=== PATIENT | female | born 1965 | race Caucasian/White ===

== ENCOUNTER 2017-01-01 13:29 | Emergency (ER) | payer OTHER ==
--- NOTE | 2017-01-01 14:12 | DIAGNOSTIC IMAGING REPORT ---
PROCEDURE: XR CHEST 1 VIEW INDICATION: CHEST PAIN TECHNIQUE: Portable AP view 01:51 p.m. COMPARISON: None. FINDINGS: Lungs are clear. Heart and mediastinum are normal. Thorax is normal. IMPRESSION: 1. Negative chest.
--- NOTE | 2017-01-01 17:13 | ED NURSING NOTES ---
Clinical Report - Nurses [facility] [address] [place] [address] 01/01/2017 13:30 Patient: MIMI GURROLA TRIAGE Triage time 13:Jan 01 2017. Acuity: LEVEL 2. Chief Complaint: CHEST PAIN. NGOC COMA SCORE: Ngoc Coma Scale: 15- eyes open spontaneously (4); best verbal response- oriented x 4 (5); best motor response- obeys commands (6). --13:38 Guilherme Hawkins R.N. 13:33 01/01/17. BP: 140/97. HR: 70. RR: 18. O2 saturation: 100%. Temp: 97.8 F. Pain level now 7/10. --13:38 Guilherme Hawkins R.N. Weight: 58 kg stated. Height/Length: 65 inches Per Patient. BMI: 21.3. --13:34 Guilherme Hawkins R.N. Medications Hormone replacement. --13:34 Guilherme Hawkins R.N. Allergies Opiates. --13:34 Guilherme Hawkins R.N. History Arrived by private vehicle. Historian: patient. Primary physician (). This started yesterday. ( States has gained 12 lbs in one week and pt states hasn't been eating then got this pain and chest tightness last night.). She has had difficulty breathing and nausea. No sweating episodes, vomiting, fever or cough. 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 PAST MEDICAL HX: Immunizations: up-to-date. The patient has had a hysterectomy. SOCIAL HX: Never smoker. No alcohol use or drug use. SELF HARM ASSESSMENT: A self harm assessment was performed. The patient answered "no" to the question "Have you recently felt down, depressed, or hopeless?" and "Do you have thoughts of harming or killing yourself?". FALL RISK ASSESSMENT: Fall risk assessment completed. No fall risk identified. NUTRITIONAL RISK ASSESSMENT: The nutritional risk assessment revealed no deficiencies. FUNCTIONAL ASSESSMENT: Functional assessment: no impairments noted. LEARNING NEEDS ASSESSMENT: The learning needs assessment revealed no barriers. ABUSE ASSESSMENT: Abuse assessment: (yes) The patient was asked "Do you feel safe in your home?". SKIN INTEGRITY ASSESSMENT: Skin integrity risk assessment completed. No skin integrity risk identified. --13:38 Guilherme Hawkins R.N. PROBLEMS: Cancer. Contusion. Menopausal syndrome. Hypothyroidism. --13:34 Guilherme Hawkins R.N. ADDITIONAL SURGERIES: Arm surgery . Hysterectomy. --13:34 Guilherme Hawkins R.N. Interventions ID band on patient. --13:38 Guilherme Hawkins R.N. PHYSICAL ASSESSMENT Ambulatory to room. GENERAL / NEURO / PSYCH: Alert. Oriented X 4. Appears anxious. HEENT: Mucous membranes are pink. RESPIRATORY: Respirations not labored. Chest nontender. Breath sounds within normal limits. CVS: Normal sinus rhythm noted. Heart sounds within normal limits. Pulses within normal limits. Capillary refill less than 2 seconds. GI / : Abdomen soft and nontender. ( Last BM today and normal). EXTREMITIES: ( Right leg swelling a couple days ago). SKIN: Skin is warm and dry. Normal skin turgor. Skin is non-tender. --13:39 Guilherme Hawkins R.N. NURSING PROGRESS NOTES The initial plan of care for this patient includes an assessment with efforts to address patient positioning, appropriate ambient lighting and comfortable environmental temperature; impairment of the cardiovascular system. safety administrator, pulse oximeter and NIBP monitor placed on patient. Patient gowned. Reassurance given. Call light placed in reach. Side rails up x 1. Bed placed in lowest position. Brakes of bed on. --13:39 Guilherme Hawkins R.N. 13:40 01/01/17. BP: 148/86. HR: 72. RR: 16. O2 saturation: 100%. --13:41 Guilherme Hawkins R.N. EKG time: (1340). EKG was ordered, performed by a tech and shown to the ED physician. --13:42 Shantelle Ray ER Tech1 13:45 01/01/2017 Site #1 started via IV in the right hand with an 20g angiocath, with aseptic technique and good blood return; one attempt. Saline lock flushed with 10 mL saline. --14:00 Lindsey Serrano R.N. 14:02 01/01/2017 Aspirin PO Tablets 325 mg given. Allergies verified and confirmed 5 rights. --14:02 Guilherme Hawkins R.N. 15:15 01/01/17. BP: 130/87. HR: 68. RR: 16. O2 saturation: 99%. 14:45 01/01/17. BP: 145/88. HR: 69. RR: 18. O2 saturation: 99%. 14:15 01/01/17. BP: 131/91. HR: 70. RR: 16. O2 saturation: 100%. 13:50 01/01/17. BP: 128/85. HR: 69. RR: 18. O2 saturation: 99%. 13:40 01/01/17. BP: 148/86. HR: 72. RR: 16. O2 saturation: 100%. --17:56 Guilherme Hawkins R.N. DISPOSITION / DISCHARGE Departure time: 1729Jan 01 2017. Condition at departure: improved. No learning barriers present. Discharge instructions provided and reviewed with the patient. Reviewed warnings. Reviewed medication(s). Treatments reviewed. Reviewed referrals. Patient verbalized understanding. Written instructions provided in Uzbek. The patient was discharged home. She left the Emergency Department ambulatory and via private vehicle. Patient driving. --19:28 Guilherme Hawkins R.N. 17:30 01/01/17. BP: 126/89. HR: 71. RR: 14. O2 saturation: 98%. Pain level now: 09/28. --19:28 Guilherme Hawkins R.N. 17:11 01/01/2017 Site #1 removed upon discharge. Catheter intact. Pressure dressing applied. --19:29 Guilherme Hawkins R.N. Locked/Released at 01/01/2017 19:29 by Guilherme Hawkins R.N.
--- NOTE | 2017-01-01 17:13 | ED NURSING NOTES ---
Clinical Report - Nurses [facility] [address] [place] [address] 01/01/2017 13:30 Patient: MIMI GURROLA TRIAGE Triage time 13:Jan 01 2017. Acuity: LEVEL 2. Chief Complaint: CHEST PAIN. NGOC COMA SCORE: Ngoc Coma Scale: 15- eyes open spontaneously (4); best verbal response- oriented x 4 (5); best motor response- obeys commands (6). --13:38 Guilherme Hawkins R.N. 13:33 01/01/17. BP: 140/97. HR: 70. RR: 18. O2 saturation: 100%. Temp: 97.8 F. Pain level now 7/10. --13:38 Guilherme Hawkins R.N. Weight: 58 kg stated. Height/Length: 65 inches Per Patient. BMI: 21.3. --13:34 Guilherme Hawkins R.N. Medications Hormone replacement. --13:34 Guilherme Hawkins R.N. Allergies Opiates. --13:34 Guilherme Hawkins R.N. History Arrived by private vehicle. Historian: patient. Primary physician (). This started yesterday. ( States has gained 12 lbs in one week and pt states hasn't been eating then got this pain and chest tightness last night.). She has had difficulty breathing and nausea. No sweating episodes, vomiting, fever or cough. 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 PAST MEDICAL HX: Immunizations: up-to-date. The patient has had a hysterectomy. SOCIAL HX: Never smoker. No alcohol use or drug use. SELF HARM ASSESSMENT: A self harm assessment was performed. The patient answered "no" to the question "Have you recently felt down, depressed, or hopeless?" and "Do you have thoughts of harming or killing yourself?". FALL RISK ASSESSMENT: Fall risk assessment completed. No fall risk identified. NUTRITIONAL RISK ASSESSMENT: The nutritional risk assessment revealed no deficiencies. FUNCTIONAL ASSESSMENT: Functional assessment: no impairments noted. LEARNING NEEDS ASSESSMENT: The learning needs assessment revealed no barriers. ABUSE ASSESSMENT: Abuse assessment: (yes) The patient was asked "Do you feel safe in your home?". SKIN INTEGRITY ASSESSMENT: Skin integrity risk assessment completed. No skin integrity risk identified. --13:38 Guilherme Hawkins R.N. PROBLEMS: Cancer. Contusion. Menopausal syndrome. Hypothyroidism. --13:34 Guilherme Hawkins R.N. ADDITIONAL SURGERIES: Arm surgery . Hysterectomy. --13:34 Guilherme Hawkins R.N. Interventions ID band on patient. --13:38 Guilherme Hawkins R.N. PHYSICAL ASSESSMENT Ambulatory to room. GENERAL / NEURO / PSYCH: Alert. Oriented X 4. Appears anxious. HEENT: Mucous membranes are pink. RESPIRATORY: Respirations not labored. Chest nontender. Breath sounds within normal limits. CVS: Normal sinus rhythm noted. Heart sounds within normal limits. Pulses within normal limits. Capillary refill less than 2 seconds. GI / : Abdomen soft and nontender. ( Last BM today and normal). EXTREMITIES: ( Right leg swelling a couple days ago). SKIN: Skin is warm and dry. Normal skin turgor. Skin is non-tender. --13:39 Guilherme Hawkins R.N. NURSING PROGRESS NOTES The initial plan of care for this patient includes an assessment with efforts to address patient positioning, appropriate ambient lighting and comfortable environmental temperature; impairment of the cardiovascular system. rn first assistant, pulse oximeter and NIBP monitor placed on patient. Patient gowned. Reassurance given. Call light placed in reach. Side rails up x 1. Bed placed in lowest position. Brakes of bed on. --13:39 Guilherme Hawkins R.N. 13:40 01/01/17. BP: 148/86. HR: 72. RR: 16. O2 saturation: 100%. --13:41 Guilherme Hawkins R.N. EKG time: (1340). EKG was ordered, performed by a tech and shown to the ED physician. --13:42 Shantelle Ray ER Tech1 13:45 01/01/2017 Site #1 started via IV in the right hand with an 20g angiocath, with aseptic technique and good blood return; one attempt. Saline lock flushed with 10 mL saline. --14:00 Lindsey Serrano R.N. 14:02 01/01/2017 Aspirin PO Tablets 325 mg given. Allergies verified and confirmed 5 rights. --14:02 Guilherme Hawkins R.N. 15:15 01/01/17. BP: 130/87. HR: 68. RR: 16. O2 saturation: 99%. 14:45 01/01/17. BP: 145/88. HR: 69. RR: 18. O2 saturation: 99%. 14:15 01/01/17. BP: 131/91. HR: 70. RR: 16. O2 saturation: 100%. 13:50 01/01/17. BP: 128/85. HR: 69. RR: 18. O2 saturation: 99%. 13:40 01/01/17. BP: 148/86. HR: 72. RR: 16. O2 saturation: 100%. --17:56 Guilherme Hawkins R.N. DISPOSITION / DISCHARGE Departure time: 1729Jan 01 2017. Condition at departure: improved. No learning barriers present. Discharge instructions provided and reviewed with the patient. Reviewed warnings. Reviewed medication(s). Treatments reviewed. Reviewed referrals. Patient verbalized understanding. Written instructions provided in Yoruba. The patient was discharged home. She left the Emergency Department ambulatory and via private vehicle. Patient driving. --19:28 Guilherme Hawkins R.N. 17:30 01/01/17. BP: 126/89. HR: 71. RR: 14. O2 saturation: 98%. Pain level now: 09/28. --19:28 Guilherme Hawkins R.N. 17:11 01/01/2017 Site #1 removed upon discharge. Catheter intact. Pressure dressing applied. --19:29 Guilherme Hawkins R.N. Locked/Released at 01/01/2017 19:29 by Guilherme Hawkins R.N.
--- NOTE | 2017-01-01 17:13 | ED ORDER SUMMARY ---
..... Patient: MIMI GURROLA OrderSheet VisitID: [id number] [address] [place] [address] 51y, F Registration Date/Time: 01/01/2017 ORDER SHEET Weight: 58.0 kg (stated) Allergies: Opiates GENERAL ORDERS: Electronic Scale Assembler And Tester (Continuous) (13:55 01/01/2017 HBivens A.R.N.P.) (13:59 LWhalen R.N.) Chest 1V Urgent (13:55 01/01/2017 HBivens A.R.N.P.) (Ack 13:57 KHoerner) (14:07 KHoerner) CBC w Diff Urgent (13:55 01/01/2017 HBivens A.R.N.P.) (Ack 13:57 KHoerner) (14:15 KHoerner) CMP Urgent (13:55 01/01/2017 HBivens A.R.N.P.) (Ack 13:57 KHoerner) (14:15 KHoerner) CPK Urgent (13:55 01/01/2017 HBivens A.R.N.P.) (Ack 13:57 KHoerner) (14:15 KHoerner) Troponin-I Urgent (13:55 01/01/2017 HBivens A.R.N.P.) (Ack 13:57 KHoerner) (14:15 KHoerner) Serum Qualitative Urgent (13:55 01/01/2017 HBivens A.R.N.P.) (Ack 13:57 KHoerner) (13:59 HBivens A.R.N.P.) (Cancelled: Other13:59 HBivens A.R.N.P.) EKG - ER Stat (13:55 01/01/2017 HBivens A.R.N.P.) (13:57 KHoerner) CPK Urgent (15:31 01/01/2017 HBivens A.R.N.P.) (Ack 15:32 KHoerner) Troponin-I Urgent (15:31 01/01/2017 HBivens A.R.N.P.) ([facility] 15:32 Yong) MEDICATION ORDERS: Aspirin PO 325 mg (Do not crush or chew, NOW) (13:55 01/01/2017 HBivens A.R.N.P.) (14:02 Bernadine R.N.) IV FLUIDS: IV Saline Lock (13:55 01/01/2017 HBivens A.R.N.P.) (14:00 Ragini R.N.) ORDER SHEET NOTES: [Electronically signed by Shelly PatricioR.N.P. (18:36 01/01/2017)] [Electronically signed by Guilherme Hawkins R.N. (19:29 01/01/2017)] [Electronically locked/signed by Guilherme Hawkins R.N. (19:29 01/01/2017)]
--- NOTE | 2017-01-01 17:13 | ED ORDER SUMMARY ---
..... Patient: MIMI GURROLA OrderSheet [facility] VisitID: [id number] [address] [place] [address] 51y, F Registration Date/Time: 01/01/2017 ORDER SHEET Weight: 58.0 kg (stated) Allergies: Opiates GENERAL ORDERS: Liability Claims Representative (Continuous) (13:55 01/01/2017 HBivens A.R.N.P.) (13:59 LWhalen R.N.) Chest 1V Urgent (13:55 01/01/2017 HBivens A.R.N.P.) (Ack 13:57 KHoerner) (14:07 KHoerner) CBC w Diff Urgent (13:55 01/01/2017 HBivens A.R.N.P.) (Ack 13:57 KHoerner) (14:15 KHoerner) CMP Urgent (13:55 01/01/2017 HBivens A.R.N.P.) (Ack 13:57 KHoerner) (14:15 KHoerner) CPK Urgent (13:55 01/01/2017 HBivens A.R.N.P.) (Ack 13:57 KHoerner) (14:15 KHoerner) Troponin-I Urgent (13:55 01/01/2017 HBivens A.R.N.P.) (Ack 13:57 KHoerner) (14:15 KHoerner) Serum Qualitative Urgent (13:55 01/01/2017 HBivens A.R.N.P.) (Ack 13:57 KHoerner) (13:59 HBivens A.R.N.P.) (Cancelled: Other13:59 HBivens A.R.N.P.) EKG - ER Stat (13:55 01/01/2017 HBivens A.R.N.P.) (13:57 KHoerner) CPK Urgent (15:31 01/01/2017 HBivens A.R.N.P.) (Ack 15:32 KHoerner) Troponin-I Urgent (15:31 01/01/2017 HBivens A.R.N.P.) ([facility] 15:32 Yong) MEDICATION ORDERS: Aspirin PO 325 mg (Do not crush or chew, NOW) (13:55 01/01/2017 HBivens A.R.N.P.) (14:02 Bernadine R.N.) IV FLUIDS: IV Saline Lock (13:55 01/01/2017 HBivens A.R.N.P.) (14:00 Ragini R.N.) ORDER SHEET NOTES: [Electronically signed by Shelly PatricioR.N.P. (18:36 01/01/2017)] [Electronically signed by Guilherme Hawkins R.N. (19:29 01/01/2017)] [Electronically locked/signed by Guilherme Hawkins R.N. (19:29 01/01/2017)]
--- NOTE | 2017-01-01 17:13 | ED CLINICAL REPORT ---
Clinical Report - Physicians/Mid Levels [facility] [address] [place] [address] 01/01/2017 13:30 Patient: MIMI GURROLA Time Seen: 13:44; initial patient contact, initial documentation, patient care assumed. Arrived- By private vehicle. Historian- patient. HISTORY OF PRESENT ILLNESS Chief Complaint: CHEST DISCOMFORT. At its maximum, severity described as moderate. When seen in the E.D., severity described as moderate. Modifying factors- worsened by movement and deep breaths. Not relieved by anything. This started last night and is still present. It was abrupt in onset and has been constant. 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 It is described as tightness and "pain" and it is described as located in the central chest area. No radiation. The patient has had difficulty breathing and nausea. No vomiting or diaphoresis. No additional chest pain. Similar symptoms previously: None. Recent medical care: Not recently seen/assessed. REVIEW OF SYSTEMS No fever, cough or abdominal pain. All systems otherwise negative, except as recorded above. PAST HISTORY See nurses notes. PROBLEMS: Cancer. Contusion. Menopausal syndrome. Hypothyroidism. --13:34 Guilherme Hawkins R.N. ADDITIONAL SURGERIES: Arm surgery . Hysterectomy. --13:34 Guilherme Hawkins R.N. SOCIAL HISTORY Never smoker. No alcohol use or drug use. No recent travel. Is a local resident. FAMILY HISTORY Negative. ADDITIONAL NOTES The nursing notes have been reviewed with agreement regarding the chief complaint, HPI, ROS, PMH and patient medications and allergies. PHYSICAL EXAM Vital Signs: 01/01/2017 13:33 BP: 140/97. HR: 70. RR: 18. O2 saturation: 100%. Temp: 97.8 F. Have been reviewed as abnormal and appear to be correct. Hypertensive. Heart rate normal. Respiratory rate normal. Temperature normal. Oxygen saturation normal. Appearance: Alert. Oriented X3. No acute distress. Eyes: Pupils equal, round and reactive to light. Eyes normal inspection. Neck: Normal inspection. Neck supple. CVS: Normal heart rate and rhythm. Heart sounds normal. Pulses normal. Respiratory: No respiratory distress. Chest tender. Chest pain reproducible with palpation of the costal cartilage, sternum and anterior chest wall, with movement of the trunk and with deep breathing. Breath sounds normal. Abdomen: Soft and nontender. Back: Normal external inspection. Skin: Skin warm and dry. Normal skin color. No rash. Normal skin turgor. Extremities: Extremities exhibit normal ROM. No lower extremity edema. Neuro: Oriented X 3. No motor deficit. No sensory deficit. LABS, X-RAYS, AND EKG EKG: EKG time: (1340). No acute process. No acute ischemia. Normal EKG. Rate: 68. Normal EKG. The study has been interpreted contemporaneously by me (and dr peterson). The EKG appears to be a good tracing. Interpretation time: 1342. Chest X-ray: Normal Chest X-Ray. (IMPRESSION: 1. Negative chest. Electronically Final signed by:Carlos Manuel Okeefe MD 01/01/2017 2:12:35 PM). The X-rays were interpreted by the radiologist and contemporaneously by me. Laboratory Tests: CBC w Diff: (HOLA: 01/01/2017 14:15) ( MsgRcvd 01/01/2017 14:23) Final results Test Result Flag Units (Reference) WHITE BLOOD COUNT 6.2 K/uL (4.5-11.5) RED BLOOD COUNT 4.78 M/uL (4.00-5.20) HEMOGLOBIN 13.8 gm/dL (12.0-16.0) HEMATOCRIT 41.1 % (36.0-46.0) MEAN CELL VOLUME 86 fL (80-100) MEAN CORPUSCULAR HGB 29 pg (26-34) MEAN CORPUSCULAR HGB CONC 34 g/dL (31-37) RED CELL DISTRIBUTION WIDTH 13.7 % (11.6-14.8) PLATELET COUNT 266 K/uL (150-400) NEUTROPHIL % 71.8 % (50-75) LYMPH % 22.0 L % (25-40) MONO % 5.2 % (3-14) EOSINOPHIL % 0.6 % (0-4) BASOPHIL % 0.4 % (0-2) CPK: (HOLA: 01/01/2017 16:00) ( MsgRcvd 01/01/2017 16:33) Final results Test Result Flag Units (Reference) CPK 52 U/L (24-260) TROPONIN I <0.05 L ng/mL (0.00-1.5) TROPONIN REFERENCE RANGE:<0.1 NEGATIVE0.1-1.5 INDETERMINANT>1.5 POSITIVE CMP: (HOLA: 01/01/2017 14:15) ( MsgRcvd 01/01/2017 14:43) Final results Test Result Flag Units (Reference) GLUCOSE 88 mg/dL (70-110) BUN 23 H mg/dL (7-18) CREATININE 0.7 mg/dL (0.6-1.3) Estimated GFR >60 mL/min Estimated GFR- >60 mL/min Note: Persistent reduction over 3 months in eGFR<60 mL/min/1.73 m2 defines CKD. Patients with eGFR values>=60 mL/min/1.73 m2 may also have CKD if evidence ofpersistent proteinuria. Additional information may be foundat www.kidney.org. SODIUM 142 mmol/L (136-145) POTASSIUM 3.7 mmol/L (3.5-5.1) CHLORIDE 107 mmol/L (98-107) CARBON DIOXIDE 27 mmol/L (21-32) CALCIUM 8.8 mg/dL (8.5-10.1) TOTAL PROTEIN 7.0 g/dL (6.4-8.2) ALBUMIN 3.8 g/dL (3.3-5.0) BILIRUBIN, TOTAL 0.6 mg/dL (0.0-1.0) ALKALINE PHOSPHATASE 87 U/L (46-116) AST (SGOT) 17 U/L (15-37) ALT (SGPT) 22 U/L (12-78) CPK 55 U/L (24-260) TROPONIN I <0.05 ng/mL (0.00-1.5) TROPONIN REFERENCE RANGE:<0.1 NEGATIVE0.1-1.5 INDETERMINANT>1.5 POSITIVE . PROGRESS AND PROCEDURES Course of Care: 13:57 01/01/17. pt has ha, nothing alarming, see report for full details. 01/01/2017 13:40 BP: 148/86. HR: 72. RR: 16. O2 saturation: 100%. Vital Signs: have been reviewed as normal and appear to be correct. Patient counseled in person regarding the patient's stable condition, test results and diagnosis. 17:09. Differential Diagnosis: I considered muscle strain, costochondritis, myositis, myocardial infarction, intermediate coronary syndrome, unstable angina, angina, aortic dissection, mitral valve prolapse, pericarditis, pulmonary embolism, pneumonia, gastroesophageal reflux disease, esophagitis and esophageal spasm as a possible cause of chest pain in this patient. This is a partial list of diagnoses considered. Above considerations are based on history, physical exam, reassessment, laboratory data, X-Ray data and EKG. Differential diagnosis was discussed with patient. Disposition: Discharged home in good and improved condition (17:12). Condition: good and stable. CLINICAL IMPRESSION Precordial chest pain characterized as "discomfort" .12 lead EKG performed. INSTRUCTIONS Warnings: GENERAL WARNINGS: Return or contact your physician immediately if your condition worsens or changes unexpectedly, if not improving as expected, or if other problems arise. SPECIFICALLY, return if you develop chest, neck, jaw, shoulder, arm, or back pain, difficulty breathing, a fluttering sensation in your chest, lightheadedness, fainting, excessive fatigue, or sudden sweating. Follow-up: Follow up with your doctor in about two days even if well. Call for an appointment. Summary of care provided to patient. Blood pressure screening was not performed during this visit because blood pressure screening was precluded by clinical urgency. Understanding of the discharge instructions verbalized by patient. (Electronically signed by Shelly Patricio A.R.N.P. 01/01/2017 18:36)
--- NOTE | 2017-01-01 19:29 | ED MAR SUMMARY ---
..... Medication Administration Record [facility] [address] [place] [address] Patient: MIMI GURROLA Visit ID: [id number] 51y, F Weight: 58.0 kg Height/Length: 65 in BMI: 21.3 ALLERGIES: Opiates Given 14:02 01/01/2017 Guilherme Hawkins R.N. Medication Administered: ASPIRIN [PO], Dose: 325 mg Tablets PO. Medication Ordered: Aspirin PO 325 mg (Do not crush or chew, NOW).
--- NOTE | 2017-01-01 19:29 | ED MED RECONCILIATION SUMMARY ---
Patient: MIMI GURROLA Medication Reconciliation Report [facility] VisitID: [id number] [address] [place] [address] 51y, F Registration Date/Time: 01/01/2017 Weight: 58.0 kg Height/Length: 65 in. BMI: 21.3 ALLERGIES: Opiates The patient's Home Medications are listed below: THE FOLLOWING MEDICATIONS NEED TO BE RECONCILED: Hormone replacement The source(s) of the original Home Medication information: Not obtained. The following Medications were given to the patient in the Emergency Department: Aspirin [PO] PO 325 mg, administered: 01/01/2017 2:02:00 PM The following Medications were prescribed to the patient: None.
--- NOTE | 2017-01-01 19:29 | ED DISCHARGE INSTRUCTIONS ---
Patient: MIMI GURROLA General Instructions [facility] VisitID: [id number] [place] [address] 51y, F Registration Date/Time: 01/01/2017 Precordial chest pain characterized as "discomfort" .12 lead EKG performed. INSTRUCTIONS Warnings: GENERAL WARNINGS: Return or contact your physician immediately if your condition worsens or changes unexpectedly, if not improving as expected, or if other problems arise. SPECIFICALLY, return if you develop chest, neck, jaw, shoulder, arm, or back pain, difficulty breathing, a fluttering sensation in your chest, lightheadedness, fainting, excessive fatigue, or sudden sweating. Follow-up: Follow up with your doctor in about two days even if well. Call for an appointment. Summary of care provided to patient. Blood pressure screening was not performed during this visit because blood pressure screening was precluded by clinical urgency. Understanding of the discharge instructions verbalized by patient. ADDITIONAL INFORMATION Chest Pain, Uncertain Cause Chest pain can happen for a number of reasons. Sometimes the cause can not be determined. If yourcondition does not seem serious, and your pain does not appear to be coming from your heart, your doctor may recommend watching it closely. Sometimes the signs of a serious problem take more time to appear. Therefore, watch for the warning signs listed below. Home care After your visit, follow these recommendations: Rest today and avoid strenuous activity. Take any prescribed medicine as directed. Follow-up care Follow up with your doctor or this facility as instructed or if you do not start to feel better within 24 hours. Call 911 Get immediate medical attention if any of the following occur: A change in the type of pain: if it feels different, becomes more severe, lasts longer, or begins to spread into your shoulder, arm, neck, jaw or back Shortness of breath or increased pain with breathing Weakness, dizziness, or fainting Rapid heart beat Get prompt medical attention Call your doctor right away if any of the following occur: Cough with dark colored sputum (phlegm) or blood Fever of 100.4F(38C) or higher, or as directed by your health care provider Swelling, pain or redness in one leg Chest Wall Pain: Costochondritis The chest pain that you have had today is caused by Costochondritis. This condition is due to an inflammation of the cartilage joining the ribs to the breastbone. It is not caused by heart or lung problems. Although the exact cause for costochondritis is not known, it often occurs during times of emotional stress. It can be painful, but it is not dangerous. It usually disappears within one to two weeks, but may recur. Rarely, a more serious condition may cause symptoms similar to costochondritis; therefore, watch for the warning signs listed below. Home Care: If you feel that emotional stress is a cause of your condition, try to identify sources of that stress. It may not be obvious! Learn ways to deal with the stress in your life such as regular exercise, muscle relaxation, meditation, or simply taking time out for yourself. For more information about this, consult your doctor or go to a local bookstore and review books and tapes available on the subject of stress reduction. You may use acetaminophen (Tylenol) or ibuprofen (Motrin, Advil) to control pain, unless another pain medicine was prescribed. [ NOTE: If you have liver disease or ever had a stomach ulcer, talk with your doctor before using these medicines.] The use of heat (hot wet compress or heating pad) with or without local analgesic creams (Deep Heat Rub, Mauri Chambers) will be helpful to reduce pain. Follow Up with your doctor as directed or sooner if you do not start to improve within the next two days. Get Prompt Medical Attention if any of the following occur: A change in the type of pain: if it feels different, becomes more severe, lasts longer, or spreads into your shoulder, arm, neck, jaw or back Shortness of breath or increased pain with breathing Weakness, dizziness, or fainting Cough with dark colored sputum (phlegm) or blood Abdominal pain Dark red or black stools Fever of 100.4F (38C) or higher, or as directed by your healthcare provider Chest Pain, Noncardiac Based on your visit today, the exact cause of your chest pain is not certain. Your condition does not seem serious and your pain does not appear to be coming from your heart. However, sometimes the signs of a serious problem take more time to appear. Therefore, please watch for the warning signs listed below. Home Care: Rest today and avoid strenuous activity. Take any prescribed medicine as directed. Follow Up with your doctor or this facility as instructed or if you do not start to feel better within 24 hours. Get Prompt Medical Attention if any of the following occur: A change in the type of pain: if it feels different, becomes more severe, lasts longer, or begins to spread into your shoulder, arm, neck, jaw or back Shortness of breath or increased pain with breathing Cough with dark colored sputum (phlegm) or blood Weakness, dizziness, or fainting Fever of 100.4F (38C) or higher, or as directed by your healthcare provider Swelling, pain or redness in one leg Angina, Stable The chest discomfort you have experienced today appears to be coming from your hearta condition called angina. Angina is a pain in the heart due to poor blood flow from blockage by plaque in one or more of the small blood vessels that deliver oxygen to the heart muscle itself. Plaque is a fatty material made up of cholesterol and other particles that build up within the artery wall. Exercise, increased activity, emotional upset, or stress can trigger this pain. With proper treatment and lifestyle changes to reduce risk factors, most people with angina are able to maintain a full and active life. Angina is not a heart attack. But if angina pain is severe or prolonged, it can lead to a heart attack, also called acute myocardial infarction, or AMI. Your angina is under control at this time. Therefore, it is safe for you to go home. Home Care Rest at home today and avoid any strenuous activity. Take medicine (usually nitroglycerin) for chest pain exactly as prescribed. Keep your nitroglycerin with you at all times. When taking nitroglycerin for angina, sit or lie down. The medication may make you feel dizzy. Place one tablet under your tongue, or between your lip and gum, or between your cheek and gum. Let the tablet dissolve completely; do not chew or swallow the tablet. If you use a spray, then spray once on orunder your tongue. Do not inhale. Close your mouth. Wait a few seconds before you swallow. After taking one tablet or spraying once, continue sitting or lying for 5 minutes. If the angina goes away completely, rest awhile and continue your normal routine. If the angina continues or gets worse, CALL 911 immediately. Do NOT delay. You may be having a heart attack! After you call 911, take a second tablet. Or, spray a second time. Wait another 5 minutes. If the angina still does not go away, take a third tablet, or spray a third time. Do not take more than 3 tablets, or spray more than 3 times, within 15 minutes. Stay on the phone with 911 for further instructions. Note: Your healthcare provider may give you slightly different instructions than those above. If so, follow them carefully. Prevention Learn how to take your own blood pressure. Keep a record of your results. Ask your doctor which readings mean that you need medical attention. Maintain a healthy weight. Get help to lose any extra pounds. Cut back on salt. Limit canned, dried, packaged, and fast foods. Dont add salt to your food at the table. Season foods with herbs instead of salt when you cook. Begin an exercise program. Ask your doctor how to get started. You can benefit from simple activities such as walking or gardening. Break the smoking habit. Enroll in a stop-smoking program to improve your chances of success. Avoid stressful situations. Learn stress-management techniques. Follow Up with your doctor as instructed. If an x-ray or ECG (electrocardiogram) was done , it will be reviewed by another specialist. You will be notified of any new findings that may affect your care. Get Prompt Medical Attention if any of the following occur: Your pain recurs and is not relieved by your usual dose of nitroglycerin Shortness of breath or increased pain with breathing Angina with weakness, dizziness, fainting, heavy sweating, nausea, or vomiting A change in the type of pain: It feels different Becomes more severe Lasts longer or occurs more often Spreads to new areas (shoulder, arm, neck, jaw, or back) Less exertion required before the pain appears Extreme drowsiness, confusion Dizziness or vertigo (dizziness with spinning sensation) Weakness of an arm or leg or one side of the face Difficulty with speech or vision You have been given the following additional information: Chest Pain, Uncertain Cause Chest Wall Pain, Costochondritis Chest Pain, Noncardiac Angina, Stable (Electronically signed by Shelly Patricio A.R.N.P. 01/01/2017 18:36)
--- NOTE | 2017-01-01 19:29 | ED MED RECONCILIATION SUMMARY ---
Patient: MIMI GURROLA Medication Reconciliation Report [facility] VisitID: [id number] [place] [address] 51y, F Registration Date/Time: 01/01/2017 Weight: 58.0 kg Height/Length: 65 in. BMI: 21.3 ALLERGIES: Opiates The patient's Home Medications are listed below: THE FOLLOWING MEDICATIONS NEED TO BE RECONCILED: Hormone replacement The source(s) of the original Home Medication information: Not obtained. The following Medications were given to the patient in the Emergency Department: Aspirin [PO] PO 325 mg, administered: 01/01/2017 2:02:00 PM The following Medications were prescribed to the patient: None.
--- NOTE | 2017-01-01 19:29 | ED MAR SUMMARY ---
..... Medication Administration Record [facility] [address] [place] [address] Patient: MIMI GURROLA Visit ID: [id number] 51y, F Weight: 58.0 kg Height/Length: 65 in BMI: 21.3 ALLERGIES: Opiates Given 14:02 01/01/2017 Guilherme Hawkins R.N. Medication Administered: ASPIRIN [PO], Dose: 325 mg Tablets PO. Medication Ordered: Aspirin PO 325 mg (Do not crush or chew, NOW).
== END 2017-01-01 17:30 | disposition home or self-care (01) ==
LOC: ED SRH 13:29
DX: R07.2 Precordial pain (principal)
CPT/HCPCS: 90074; 90100; 90616; 92610; 95059